=== PATIENT | male | born 1970 | race Asian ===

== ENCOUNTER → 2024-03-30 08:04 | Outpatient (REF) | payer OTHER, SELFPAY ==
--- NOTE | 2024-03-30 13:06 | PN.DE.MGMTRT ---
Insulin Management
- -
03/30/2024 Patient referred by who is a GI physician for further assistance with pump management. Patient has had diabetes 20+ years and is currently using an OmniPod with G6. 5'10' 148 pounds.
1. He c/o lumps under his skin that are painful. Discussed moving away from his thighs as he is very lean, consider hip area. Demonstrated area to use for pump insertion. Also discussed if this continues may need to pursue alternate pump so
multiple infusion sets could be tried to try to reduce skin reaction and pain.
2. He takes 6 units of insulin for each meal regardless of what he eats. He is afraid to take carbs so that he doesn't have to take insulin which will cause bumps. Lengthy discussion regarding importance of good balanced nutrition and impact on
QoL. He is in agreement. Provided nutrition education booklet and instructed on counting carbs. He and his verbalize understanding. He will use the pump setting for carb ratio of 9 and report glucose result to determine if carb ratio needs
to be adjusted.
3. Multiple low blood sugars as low as 40. This has been happening usually in relation to patient eating a meal taking a dose of insulin and exercising aggressively to bring glucose back down. Assured patient we will adjust carb ratio so this
will not happen.
Patient to record glucose results overnight and call in AM with results.
Will then skip a meal and report hourly glucose results to determine if basal rates are appropriate.
Pump settings
basal carb ratio sensitivity
12 .15 9 45
2am .75 9 45
3am 1.5 9 45
7am .75 9 45
10pm .15 9 45
Will follow daily until glucose stable.
Diabetes History
- -
Type of Diabetes: 1
Pre-Admission Diabetes Regimen
Insulin Pump Settings
IP Diabetes Regimen
Patient Education
== END ==
LOC: DES 08:04
PROVIDERS: ATTENDING PHYSICIAN Internal Medicine Gastroenterology
DX: E10.65 Type 1 diabetes mellitus with hyperglycemia (principal)
CPT/HCPCS: 99078

== ENCOUNTER 2024-12-11 12:57 | Inpatient (IN) | payer OTHER, SELFPAY ==
[2024-12-11] VITALS (21 sets, daily range): BP systolic 125–229; BP diastolic 69–137
[2024-12-11 06:20] LABS: % Basophils 0.2 % (0-2); % Immature Granulocytes 0.4 % (0-0.5); % Lymphocytes 8.4 % (20.5-51.1); % Monocytes 2.9 % (1.7-9.3); % Neutrophils 88.1 % (42.2-75.2); Absolute Lymphocytes 0.9 10^3/uL (1.2-3.4); Absolute Monocytes 0.3 10^3/uL (0.1-0.6); Absolute Neutrophils 9.6 10^3/uL (1.4-6.5); Hematocrit 43.7 % (39.0-52.0); Hemoglobin 14.9 g/dL (13.0-18.0); Mean Corp Hgb Conc. 34.1 g/dL (33.0-37.0); Mean Corpuscular Hgb 28.2 pg (27.0-31.0); Mean Corpuscular Volume 82.8 fL (80.0-94.0); Mean Platelet Volume 9.7 fL (7.4-10.4); Nucleated Red Blood Cells % 0 % (-); Platelet Count 200 10^3/uL (130-400); Red Blood Cell Count 5.28 10^6/uL (4.70-6.10); White Blood Cell Count 10.9 10^3/uL (4.8-10.8)
[2024-12-11 06:32] LABS: Lactic Acid 1.4 mmol/L (0.7-2.0)
[2024-12-11 06:35] LABS: ALT (SGPT) 20 U/L (0-50); AST (SGOT) 26 U/L (17-59); Albumin 4.2 g/dl (3.5-5.0); Alkaline Phosphatase 74 U/L (38-126); Blood Urea Nitrogen 12 mg/dl (9-20); Calcium 9.6 mg/dl (8.4-10.2); Carbon Dioxide 28 mmol/L (22-30); Chloride 101 mmol/L (98-107); Glucose 270 mg/dl (70-99); Lipase 148 U/L (23-300); Potassium 4.2 mmol/L (3.5-5.1); Sodium 136 mmol/L (135-145); Total Bilirubin 1.1 mg/dl (0.2-1.3); Total Protein 6.6 g/dl (6.3-8.2); Triglycerides 56 mg/dl (10-149); eGFR > 60.00
[2024-12-11] MEDS: NSS 1000 IV ×2 (06:45→11:30)
[2024-12-11] MEDS: ZOFRAN 4 MG IV ×3 (06:46→17:02)
[2024-12-11] MEDS: DILAUDID 0.5 MG IV ×2 (06:49→09:20)
[2024-12-11] MEDS: PROTONIX IV 40 MG IV ×2 (06:51→22:21)
[2024-12-11] MEDS: OMNIPAQUE 50 ML PO (07:30)
--- NOTE | 2024-12-11 08:17 | ED.GENMED ---
History of Present Illness
General
Chief Complaint: Abdominal Pain
Source: patient
Exam Limitations: none
Time Seen by Provider: 12/11/24 06:26
Nursing documentation reviewed up to this point in time: agreed with
History of Present Illness
History of Present Illness:
Patient with history of insulin-dependent diabetes, presents to ED secondary to persistent abdominal pain along with 1 vomiting episode, since yesterday afternoon. Patient does report having eaten type of food that he does not normally eat, along
with increased amount. Patient describes abdominal pain as sharp, diffuse, without any alleviating or exacerbating factors. Patient states that he has had similar symptoms in the past, typically resolves very quickly spontaneously. Denies history
of abdominal surgeries. Denies recent illness. Denies recent change in medications or diet. Denies diarrhea.
Review of Systems
Review of Systems
Allergies reviewed?: Yes
All Other Systems: ROS reviewed and negative except as documented in HPI and ROS
Constitutional: Reports no symptoms; Denies fever or chills
Respiratory: Reports no symptoms; Denies cough
Cardiac: Reports no symptoms; Denies chest pain
ABD/GI: Reports abdominal pain, nausea and vomiting; Denies diarrhea
Musculoskeletal: Reports no symptoms
Skin: Reports no symptoms
Neurological: Reports no symptoms
Phy Exam
Physical Exam
Physical Exam:
Physical Exam
General: mild painful distress, not acutely ill. afebrile
Head: nc/at. eomi
Neck: supple. normal range of motion.
Heart: s1/s2 regular rate and rhythm, no murmur.
Lungs: no acute respiratory distress. clear bilaterally
Abdomen: normal bowel sounds. no distention. mild epigastric/periumbilical tenderness to palpation
Neuro: alert and oriented x 3. no focal neurological deficits
Skin: no rash
Psychiatric: well kept. interactive and cooperative
Extremities: no edema. no calf tenderness
Course
Orders/Labs/Results
Orders:
Orders
12/11/24 05:52
IV Insert/Care/Rem.- Treatment PRN
12/11/24 05:54
EKG [Electrocardiogram (*1)] Urgent
Reason for Study: Abdominal Pain
EKG- Treatment ONCE
12/11/24 06:07
Complete Blood Count/With Diff Urgent
Comprehensive Metabolic Panel Urgent
Lactic Acid Urgent
Lipase Urgent
TSH Routine
Comment: ADD ON
Triglycerides Urgent
12/11/24 06:32
Add On- LAB Routine
Tests Added?: TSH
12/11/24 06:38
0.9% Sodium Chloride 1000 ml [Nss] 1,000 ml IV BOLUS
HYDROmorphone [Dilaudid] 0.5 mg IV NOW STA
Ondansetron Injectable [Zofran] 4 mg IV NOW STA
Pantoprazole [Protonix IV] 40 mg IV NOW STA
12/11/24 07:09
Iohexol [Omnipaque] See Protocol PO NOW STA
12/11/24 07:12
CT Abd/pel W Iv And Oral Contr Urgent
Comment:
Reason For Exam: abdominal pain
12/11/24 09:15
HYDROmorphone [Dilaudid] 0.5 mg IV NOW STA
Ondansetron Injectable [Zofran] 4 mg IV NOW STA
12/11/24 11:00
0.9% Sodium Chloride 1000 ml [Nss] 1,000 ml IV 100 mls/hr
12/11/24 11:15
Gastrointestinal Tubes As Directed
Type: [place] sump
To suction?: Yes
Type of suction: Low intermittent
Directions to clamp NG tube: for testing/ambulation
Irrigate tube?: Yes
Irrigant: Tap Water
Frequency: Q4H
Amount in mls: 30
Irrigation Directions: Irrigate Q4H and PRN
Comment: 16fr joannem sump
12/11/24 11:33
CR Chest Single View Routine
Comment:
Reason For Exam: eval NGT placement
12/11/24 12:01
Bladder Scan As Directed
Follow Bladder Retention/Intermittent Cath Algorithm?: No
12/11/24 12:10
Benzocaine 20% [Hurricaine [place]] 1 applic .ROUTE .STK-MED ONE
12/11/24 12:29
CR Chest Portable - 1 View Urgent
Comment:
Reason For Exam: ngt placement
Reason Study Needs to be Portable: Patient Unstable
12/11/24 12:35
Admit/Transfer Patient As Directed
Co-Sign Provider:
Level of Care: Inpatient admission
Assign to:: Medical/Surgical
Physician / Group: pasricha/medicine
Diagnosis: ileus/?sbo
Reason for Hospitalization: ileus/?sbo
Expected length of stay greater than two midnights?: Yes
ELOS- Estimated Length of Stay in days: 3
I certify the patient meets the requirements for IP care: Yes
HYDROmorphone [Dilaudid] 1 mg IV NOW STA
12/11/24 12:36
PRN Pain Medication Management As Directed
May give lesser potent ordered pain med per pt: Yes
preference::
Protocol:: Medication orders for pain may be administered in a
manner that supports deferring to patient preference
when the pt is:
- Requesting an ordered lesser potent pain medication.
Least to most potent pain medications are defined
as: acetaminophen < NSAID < tramadol < opioids
(morphine, oxycodone, hydromorphone).
- Requesting a lesser dose of the same medication IF
ORDERED.
- Requesting a less intrusive route of administration
if both routes are prescribed by the provider (PO <
IV).
12/11/24 12:37
Code Status As Directed
Resuscitation Status: Full Code
12/11/24 12:41
Diabetes Management by Nurse Practitioner Routine
Consulting Provider: Amairani Nelson
Was provider already notified?: Yes
12/12/24 06:00
CR Abdomen - 1 View IN AM
Comment:
Reason For Exam: n/v/abdominal pain, follow PO contrast
Abnormal Lab Results
12/11/24 12/11/24
06:07 11:05
WBC 10.9 H 10^3/uL
(4.8-10.8)
Absolute Neuts (auto) 9.6 H 10^3/uL
(1.4-6.5)
Absolute Lymphs (auto) 0.9 L 10^3/uL
(1.2-3.4)
Neutrophils % 88.1 H %
(42.2-75.2)
Lymphocytes % 8.4 L %
(20.5-51.1)
Glucose 270 H mg/dl
(70-99)
POC Glucose 213 H mg/dl
(70-99)
12/11/24 06:07
12/11/24 06:07
Vital Signs
Initial and Last Documented VS:
Initial Vital Signs
Temp Pulse Resp BP Pulse Ox
98.9 F 112 22 158/92 99
12/11/24 05:33 12/11/24 05:33 12/11/24 05:33 12/11/24 05:33 12/11/24 05:33
Last Documented Vital Signs
Temp Pulse Resp BP Pulse Ox
98.9 F 79 14 161/83 98
12/11/24 05:33 12/11/24 13:22 12/11/24 13:22 12/11/24 13:22 12/11/24 13:22
MDM/Problems Addressed
MDM/Problems Addressed:
CT abdomen pelvis report reviewed and discussed with patient and spouse. As patient does not have any previous abdominal surgical history and with symptoms having started after consuming meal that he does not typically eat, it is likely that his
symptoms are more likely ileus as a result of mild colitis rather than small obstruction. As such, patient will be treated conservatively with IV fluids and bowel rest. Will hold off NG tube placement at this time.
*Critical Care Note
Total Time (30-74mins, 75-104mins- exclusive of procedures): Not Applicable
ED Attending Note
-
Portions of this chart may have been created with voice recognition software.� Occasional wrong word or��sound alike� substitutions may have occurred due to the inherent limitations of voice recognition software.
Discharge Plan
Departure
Patient Disposition: Admit
Date of Disposition: 12/11/24
Time of Disposition: 11:00
Admit to: Med/Surg
Presentation/result/management discussed w/ accepting MD/DO: Hospitalist
Discharge Problem:
Small bowel obstruction, Hyperglycemia
Interventions
Interventions:
*Risk Screen - Suicide Last Done: 12/11/24 05:33
*General Assessment Last Done: 12/11/24 05:44
*Neglect/Abuse Screening Last Done: 12/11/24 05:33
*ED- Fall Risk Assessment Last Done: 12/11/24 05:44
*ED COVID-19 Vaccine History Last Done: 12/11/24 05:44
ZY-Qrdxgh-Tmuxqfwzct Assessment Last Done: 12/11/24 05:44
[2024-12-11 10:45] LABS: TSH 1.96 uIU/ml (0.47-4.68)
[2024-12-11 11:15] LABS: Glucose - Point of Care 213 mg/dl (70-99)
--- NOTE | 2024-12-11 11:34 | CON.GS ---
Medical History
-
Chief Complaint: N/V/ABD pain
History of Present Illness:
This is a 53 yo male with a h/o NIDDM with no prior abdoinal surgery who presents through the ED with one day of nausea and vomiting with abdominal pain. He notes that yesterday morning, he had a very large breakfast which was about double the
amount he usually eats with lots of high fiber foods (he estimates about 35-40gm of fiber). Later that day, he began developing sharp diffuse abdominal pain with an episode of vomiting. His pain persisted causing him to present through the ED for
evaluation. He denies fevers or chills. He has had relief in pain and nausea s/p dilaudid and zofran administered in the ED.
Past Medical History
Past Medical History: Hypercholesterolemia, Hypothyroidism and NIDDM
Past Surgical History: None and Other (last colonoscopy was several months ago)
Social History
Tobacco: Non-Smoker
Alcohol: None
Family History
Family History: Reviewed & Not Pertinent
Allergies / Home Medications
Allergy/AdvReac Type Severity Reaction Status Date / Time
No Known Allergies Allergy Verified 12/11/24 05:36
�Medication �Instructions �Recorded �Confirmed �Type
atorvastatin 20 mg tablet 20 mg PO HS 12/11/24 12/11/24 History
levothyroxine 25 mcg tablet 25 mcg PO DAILY 12/11/24 12/11/24 History
(Unithroid)
metformin 1,000 mg tablet 1,000 mg PO BID 12/11/24 12/11/24 History
Review of Systems
-
History Source: Patient
All other systems: Negative unless noted
A 10 point review of systems was completed, and was negative except as per HPI.
Physical Exam
Vital Signs
Temp Pulse Resp BP Pulse Ox
98.9 F 82 15 142/81 99
12/11/24 05:33 12/11/24 07:30 12/11/24 07:30 12/11/24 07:00 12/11/24 07:30
Lab Results
12/11/24 06:07
12/11/24 06:07
WBC 10.9 10^3/uL (4.8-10.8) H 12/11/24 06:07
Hgb 14.9 g/dL (13.0-18.0) 12/11/24 06:07
Hct 43.7 % (39.0-52.0) 12/11/24 06:07
Plt Count 200 10^3/uL (130-400) 12/11/24 06:07
Abs Immat Gran (auto) 0.0 10^3/uL (0-0.05) 12/11/24 06:07
Neutrophils % 88.1 % (42.2-75.2) H 12/11/24 06:07
Physical Exam
General: Well Developed and Well Nourished
HEENT: Moist Mucous Membranes
GI: Soft, Tender (mild) and Distended
Skin: Warm and Dry
Neuro: Awake, Alert and AO x 3
Psych: Calm
Data Reviewed
-
CT Scan: Image Personally Visualized and interpreted, Report Reviewed by me, Discussed with Physician, Discussed with Nurse, Discussed with Patient and Discussed with Family
Labs: Labs Reviewed by me, Discussed with Physician, Discussed with Nurse, Discussed with Patient and Discussed with Family
Assessment / Plan
-
53 yo male with h/o NIDDM and no prior abdominal surgeries presenting with one day of abd pain/n/v. Mild leukocytsosis. AFVSS. CT imaging reviewed with SBO present with transition point likely in the jejunum with small bowel feces sign. Unclear
etiology, suspect dietary indiscretion given reported history. Discussed dx laparoscopy for further evaluation today vs following closely for improvement with bowel rest/decompression. Opting for nonoperative measures at this time. Being admitted to
the hospitalist service.
Plan:
--Place NGT to LIWS, will check XR for placement
--NPO/IVF
--Antiemetics/Analgesics
--Xray in AM
--Diabetic/medical management as per primary team
[2024-12-11] MEDS: DILAUDID 1 MG IV (12:42)
--- NOTE | 2024-12-11 13:27 | W.PN.UPDATE ---
Update Note
Progress Note Update
asked to assist with NGT placement. Initial NGT right nare but coiled up in esophagus and unable to flush or drain. Attempted to adjust with coiling in mouth. Made another attempt to place left nare #18 tunisian with some resistant or nasal cavity
with small amount of bleeding. Pt requested break. Sent message to surgery to another attempt. Would consider # 16 tunisian right nare next. Reviewed with Dr. Robbins.
--- NOTE | 2024-12-11 14:58 | HPS.HSE ---
Family Physician
-
Family Physician: Philip Venegas
Chief Complaint
-
Epigastric pain
History of Present Illness
53-year-old male with past medical history of diabetes on insulin pump, atorvastatin, hypothyroidism, no prior abdominal surgeries now presents for 1 day of abdominal pain, nausea and vomiting. Unable to tolerate PO. No Diarrhea. No known sick
contacts. Pain is intermittent, sharp, diffuse, mid epigastric area. Does not acknowledge any new types of food intake. No change in medications or diet, glucose fairly under control with insulin pump. Labs remarkable for white count of 10.9 K,
glucose 270. Remains hypertensive, with pain, respiratory rate 15, pulse 84, afebrile. CT imaging with questionable small bowel obstruction although no known surgical interventions. An adynamic ileus is less likely possibility given possible
transition point. Mild circumferential wall thickening in the splenic fissure to suggest mild colitis. Patient abdomen is nondistended, nontender. Does have severely distended urinary bladder on imaging. Colorectal surgery was consulted.
Medical History
Past Medical History
Past Medical History: Reports Hypothyroidism and IDDM
Past Surgical History: Reports None
Additional Past Surgical History:
last colonoscopy was several months ago
Social History
Tobacco: Non-smoker
Alcohol: None
Family History
Family History: Not pertinent
Allergies / Home Medications
Allergies reflects when Allergies were last updated in [employer].
Home Medications with original date entered in [employer]
Allergy/Medication List:
Allergies
Allergy/AdvReac Type Severity Reaction Status Date / Time
No Known Allergies Allergy Verified 12/11/24 05:36
Home Medications
Patient's Own Insulin Pump 50 - 60 units SC .NOVOLOG 12/11/24
atorvastatin 20 mg tablet 20 mg PO HS 12/11/24
ergocalciferol (vitamin D2) 1,250 mcg (50,000 unit) capsule 1,250 mcg PO QMONTH 12/11/24
levothyroxine 25 mcg tablet (Unithroid) 25 mcg PO DAILY 12/11/24
metformin 1,000 mg tablet 1,000 mg PO BID 12/11/24
Review of Systems
-
History Source: Patient
A 12 point ROS was completed and negative except as noted: Yes
Physical Exam
Vital Signs
Vital Signs
Temp Pulse Resp BP Pulse Ox
98.9 F 84 15 182/78 95
12/11/24 05:33 12/11/24 14:30 12/11/24 14:30 12/11/24 14:13 12/11/24 14:30
Physical Exam
General: Well Developed, Well Nourished and Pain
HEENT: NormoCephalic, Anicteric and Moist mucous membranes
Respiratory: Clear
Cardiac: S1/S2 and Regular Rhythm
GI: Soft, Non Tender and Non Distended
Musculoskeletal: No Clubbing
Skin: Warm
Neuro: Awake, Alert, Oriented and AO x 3
Hematologic/Lymphatic: No Lymphadenopathy
Psych: Calm
Laboratory Results
-
12/11/24 06:07
12/11/24 06:07
Laboratory Results
Lactic Acid 1.4 mmol/L (0.7-2.0) 12/11/24 06:07
Total Bilirubin 1.1 mg/dl (0.2-1.3) 12/11/24 06:07
AST 26 U/L (17-59) 12/11/24 06:07
ALT 20 U/L (0-50) 12/11/24 06:07
Alkaline Phosphatase 74 U/L (38-126) 12/11/24 06:07
Lipase 148 U/L (23-300) 12/11/24 06:07
Data Reviewed
-
Diagnostic Radiology: Report Reviewed by me
CT Scan: Report Reviewed by me
Lab Data: Labs Reviewed by me
Impression/Plan
-
IMPRESSION:
53-year-old male with past medical history of diabetes on insulin pump, atorvastatin, hypothyroidism, no prior abdominal surgeries now presents for 1 day of abdominal pain, nausea and vomiting.
PLAN:
#Abdominal pain
#Nausea/Vomiting
-Possible Ileus V less likely SBO
- May have superimposed gastroenteritis
- Pain control, antiemetics, supportive care
- NPO
- Will attempt NGT to LIWS for relief and decompression, will be re-attempted by surgery
- TSH WNL
- Add on HgBa1c
- Surgery Consulted
-LR
#Hypertension
-I suspect pain induced
-Hydral IV PRN
-monitor
#IDDM
-continue insulin pump
-f/u Hgba1c
-Monitor glucose
�Hold metformin
# Hypothyroidism
TSH within normal limits
� Can hold oral Synthroid for 5 days until requiring IV Synthroid
#Hyperlipidemia
#DVT prophylaxis
� Lovenox
--- NOTE | 2024-12-11 15:31 | PTCARENOTE ---
surgery at bedside placing NG tube
[2024-12-11] MEDS: LIDOCAINE URO-JET 2% 1 SYRINGE TOPICAL (15:39)
--- NOTE | 2024-12-11 15:52 | PTCARENOTE ---
to radiology to confrim placement. NG draining moderate amt pale yellow/mckenna
--- NOTE | 2024-12-11 17:07 | PTCARENOTE ---
pt nauseous and vomiting. Zofran orders obtained. See MAR. BP remains elevated- contacting attending
--- NOTE | 2024-12-11 17:39 | SUR.PHASEI ---
pt transferred to 3W
[2024-12-11] MEDS: LR 1000 IV (18:14)
[2024-12-11 18:30] LABS: Glucose - Point of Care 210 mg/dl (70-99)
[2024-12-11] MEDS: LOVENOX 40 MG SC (18:34)
--- NOTE | 2024-12-11 18:44 | PTCARENOTE ---
Pt arrived to the unit around 1800, ambulated from stretcher to bed x1 assist. NG tube in place, pt appears to be tolerating. No pain reported at this time. and family accompanied to unit. Pt and family oriented to unit and room. Pt alerted to
this nurse that his own pump (insulin order in place) was reading high sugar. MD notified, sliding scale pen ordered. POC glucose completed at 201. Awaiting pen from pharmacy at this time. VSS. Plan of care ongoing.
[2024-12-11] MEDS: NOVOLOG FLEXPEN-LOW RESISTANCE 2 UNITS SC (19:15)
[2024-12-11] MEDS: NSS (PRESERVATIVE FREE) 10 ML IV (22:20)
[2024-12-11] MEDS: DULCOLAX 10 MG RECTAL (22:21)
[2024-12-11] MEDS: PT'S OWN INSULIN PUMP - NovoLOG SC (23:29)
[2024-12-12 00:06] LABS: Glucose - Point of Care 133 mg/dl (70-99)
[2024-12-12] MEDS: NOVOLOG FLEXPEN-LOW RESISTANCE SC ×2 (00:08→06:07)
[2024-12-12 05:40] LABS: Hematocrit 39.7 % (39.0-52.0); Hemoglobin 13.2 g/dL (13.0-18.0); Mean Corp Hgb Conc. 33.2 g/dL (33.0-37.0); Mean Corpuscular Hgb 27.8 pg (27.0-31.0); Mean Corpuscular Volume 83.6 fL (80.0-94.0); Platelet Count 185 10^3/uL (130-400); Red Blood Cell Count 4.75 10^6/uL (4.70-6.10); Red Cell Dist. Width 13.1 % (11.5-14.5); White Blood Cell Count 9.2 10^3/uL (4.8-10.8)
[2024-12-12 05:46] LABS: Glucose - Point of Care 129 mg/dl (70-99)
[2024-12-12 06:00] VITALS: BMI 21.0
[2024-12-12 06:20] LABS: ALT (SGPT) 20 U/L (0-50); AST (SGOT) 26 U/L (17-59); Albumin 3.8 g/dl (3.5-5.0); Alkaline Phosphatase 63 U/L (38-126); Blood Urea Nitrogen 13 mg/dl (9-20); Calcium 8.7 mg/dl (8.4-10.2); Carbon Dioxide 29 mmol/L (22-30); Chloride 106 mmol/L (98-107); Glucose 135 mg/dl (70-99); Magnesium 2.2 mg/dl (1.6-2.3); Potassium 3.9 mmol/L (3.5-5.1); Sodium 143 mmol/L (135-145); Total Bilirubin 1.2 mg/dl (0.2-1.3); Total Protein 5.8 g/dl (6.3-8.2); eGFR > 60.00
[2024-12-12 06:48] LABS: TSH 3.01 uIU/ml (0.47-4.68)
[2024-12-12 07:15] VITALS: BP 120/72
[2024-12-12] MEDS: LR IV (08:00)
[2024-12-12] MEDS: PROTONIX IV 40 MG IV ×2 (08:24→20:23)
[2024-12-12] MEDS: NSS (PRESERVATIVE FREE) 10 ML IV ×2 (08:24→20:24)
[2024-12-12] MEDS: PT'S OWN INSULIN PUMP - NovoLOG SC (08:31)
[2024-12-12 09:13] LABS: Glycohemoglobin (HgbA1c) 6.6 % (4.0-5.6)
--- NOTE | 2024-12-12 09:28 | W.PN.GS2 ---
Today's Communication / Plan
-
-- No plans for surgery
-- DC NGT
-- Trial of clears, ADAT to fulls
Assessment / Plan
-
Patient is a 53 yo M p/w partial SBO likely secondary to dietary indiscretion with recent high-fiber food intake
AVSS
Labs with normalization of WBC
Clinical and radiographic improvement with passage of contrast into the colon and no significant small bowel dilation. No plans or indication for surgical intervention at this time. Given rapid clinical and radiographic improvement would hold on
further workup such as a SBFT at this time.
-- No plans for surgery
-- DC NGT
-- Trial of clears, ADAT to fulls
-- Correct, lytes, minimize narcotics, OOB/ambulate
Subjective Data
-
Date of Service: December 12, 2024
No complaints. Abdominal pain improved. No nausea or vomiting. No flatus or BM. Afebrile.
Objective Data
-
Intake and Output
12/11/24 12/12/24 12/13/24
06:59 06:59 06:59
Intake Total 0 / 0
Balance 0 / 0
Intake:
Oral fluids 0 / 0
Other:
Number of approximated MODERATE 1
amounts of urine
Vital Signs
Temp Pulse Resp BP Pulse Ox
98.6 F 90 16 120/72 98
12/12/24 07:15 12/12/24 07:15 12/12/24 07:15 12/12/24 07:15 12/12/24 07:15
Lab Results
12/12/24 05:19
12/12/24 05:19
Calcium 8.7 mg/dl (8.4-10.2) 12/12/24 05:19
Magnesium 2.2 mg/dl (1.6-2.3) 12/12/24 05:19
Total Bilirubin 1.2 mg/dl (0.2-1.3) 12/12/24 05:19
AST 26 U/L (17-59) 12/12/24 05:19
ALT 20 U/L (0-50) 12/12/24 05:19
Alkaline Phosphatase 63 U/L (38-126) 12/12/24 05:19
Total Protein 5.8 g/dl (6.3-8.2) L 12/12/24 05:19
Albumin 3.8 g/dl (3.5-5.0) 12/12/24 05:19
Physical Exam
-
Gen: NAD
Abd: soft, NT/ND, non-peritoneal
Patient has a tovar catheter: No
Patient has a central line: No
--- NOTE | 2024-12-12 12:10 | PN.DE.MGMTRT ---
Insulin Management
- -
12/12/2024 Diabetes Management Consult
Patient admitted 12/11 with abdominal pain, small bowel obstruction. PMH type 1 diabetes, hypothyroid. Prior to admission patient was using the OmniPod 5 system with DexCom G6, and novolog insulin. A1C 6.6%, cr .7, eGFR > 60.
Patient is awake alert and oriented resting in bed, no complaint of abdominal pain. NGT removed. Has started clear liquids, tolerating. Had water ice this AM.
Fasting glucose 129, after water ice glucose up to 270. Patient had changed basal rates to much lower rates and was in manual mode. Discussed with patient importance of glucose control. He is under the impression his pump would just correct him.
Reminded patient he must be in Auto mode for the pump to correct and that he must be running his usual basal rate settings for optimal control. Pump settings as follows:
12am .15
2am .75
3am 1.5
7am .75
10pm .15
24 hour basal total 18.6
I:CHO ratio 8
Correction factor 40
Active insulin 3 hours.
Guided patient to take a correction, which he did. Pump placed back in Auto mode. Patient understands to bolus for all carbohydrate consumed.
Will follow
Discussed with nurse.
Diabetes History
- -
Type of Diabetes: 1
Pre-Admission Diabetes Regimen
12/12/24
05:19
Creatinine 0.7
Lab Results
Hemoglobin A1c 6.6 % (4.0-5.6) H 12/11/24 06:07
Insulin Pump Settings
IP Diabetes Regimen
12/11/24 12/12/24 12/12/24
18:28 00:04 05:19
Glucose 135 H
POC Glucose 210 H 133 H
12/12/24
05:45
Glucose
POC Glucose 129 H
Patient Education
--- NOTE | 2024-12-12 12:47 | W.PN.HOSP.TC ---
Today's Communication/Plan
-
ADAT
If tolerating diet can consider DC
F/u GI outpt
Assessment / Plan
Assessment / Plan
Physical Exam
General: Well Developed, Well Nourished and Pain
HEENT: NormoCephalic, Anicteric and Moist mucous membranes
Respiratory: Clear
Cardiac: S1/S2 and Regular Rhythm
GI: Soft, Non Tender and Non Distended
Musculoskeletal: No Clubbing
Skin: Warm
Neuro: Awake, Alert, Oriented and AO x 3
Hematologic/Lymphatic: No Lymphadenopathy
Psych: Calm
53-year-old male with past medical history of diabetes on insulin pump, atorvastatin, hypothyroidism, no prior abdominal surgeries now presents for 1 day of abdominal pain, nausea and vomiting.
PLAN:
#Abdominal pain
#Nausea/Vomiting
-Possible Ileus V less likely SBO
- May have superimposed gastroenteritis
- Pain control, antiemetics, supportive care
- NGT removed
-KUB with improvement in fecal material, no evidence of intestinal obstruction
-CLD, ADAT to Full
- TSH WNL
- Add on HgBa1c
- Surgery Consulted
-Successful BM with Enema
-F/u GI outpt
#Hypertension
-improved
-I suspect pain induced
-Hydral IV PRN
-monitor
#IDDM
-continue insulin pump on auto mode
-f/u Hgba1c - 6.6
-Monitor glucose
�Hold metformin
-AISS
-DM BUSINESS MANAGEMENT SPECIALIST consulted
# Hypothyroidism
TSH within normal limits
� Can hold oral Synthroid for 5 days until requiring IV Synthroid
#Hyperlipidemia
#DVT prophylaxis
� Lovenox
Anticipated Discharge: Within 24 hours
Subjective/Interval History
-
Date of Service: December 12, 2024
discomfort with NGT, removed with improvement. Successful BM after enema.
Objective Data
-
Labs:
Laboratory Results
12/12/24
05:19
WBC 9.2
Hgb 13.2
Hct 39.7
Plt Count 185
Sodium 143
Potassium 3.9
Chloride 106
Carbon Dioxide 29
BUN 13
Creatinine 0.7
Glucose 135 H
Calcium 8.7
Total Bilirubin 1.2
AST 26
ALT 20
Alkaline Phosphatase 63
Vital Signs:
Vital Signs
Temp Pulse Resp BP Pulse Ox
98.6 F 90 16 120/72 98
12/12/24 07:15 12/12/24 07:15 12/12/24 07:15 12/12/24 07:15 12/12/24 07:15
I&O
12/11/24 12/12/24 12/13/24
06:59 06:59 06:59
Intake Total 0 / 0 30 / 30
Output Total 200 / 200
Balance 0 / 0 -170 / -170
Review of Systems
-
History Source: Patient
All other systems: Not reviewed unless documented
Data Reviewed
-
Diagnostic Radiology: Report Reviewed by me
CT Scan: Report Reviewed by me
Labs: Labs Reviewed by me
[2024-12-12] MEDS: PT'S OWN INSULIN PUMP - NovoLOG 9.7 UNIT SC (12:54)
--- NOTE | 2024-12-12 15:43 | CM ---
Alert awake oriented patient who lives with his Lisa who lives in a 2 story home with 3 step to enter and 12 steps to bed and bathroom. He is independent in driving and in all activities of daily living.He was offered VN he declined need.
No VN hx / No SNF history
Pharmacy [facility]
PCP DR Venegas
PLAN Home Declined VN
[2024-12-12 15:50] VITALS: BP 101/67
[2024-12-12] MEDS: LOVENOX 40 MG SC (17:31)
[2024-12-12 17:34] LABS: Glucose - Point of Care 78 mg/dl (70-99)
[2024-12-12] MEDS: PT'S OWN INSULIN PUMP - NovoLOG 11.2 UNIT SC (17:34)
[2024-12-12 21:39] LABS: Glucose - Point of Care 140 mg/dl (70-99)
[2024-12-12] MEDS: PT'S OWN INSULIN PUMP - NovoLOG 6 UNIT SC (21:49)
[2024-12-12 23:36] VITALS: BP 102/58
[2024-12-13 07:30] VITALS: BP 100/53
--- NOTE | 2024-12-13 07:55 | PN.DE.MGMTRT ---
Insulin Management
- -
12/13/2024 Diabetes Management Consult Follow up
Patient admitted 12/11 with abdominal pain, small bowel obstruction. PMH type 1 diabetes, hypothyroid. Prior to admission patient was using the OmniPod 5 system with DexCom G6, and novolog insulin. A1C 6.6%, cr .7, eGFR > 60.
Patient is awake alert and oriented resting in bed, no complaint of abdominal pain. NGT removed 12/12, started clear liquids, tolerating.
12/12 Patient had changed basal rates to much lower rates and was in manual mode. Discussed with patient importance of glucose control. He is under the impression his pump would just correct him. Reminded patient he must be in Auto mode for the
pump to correct and that he must be running his usual basal rate settings for optimal control. Pump settings as follows:
12am .15
2am .75
3am 1.5
7am .75
10pm .15
24 hour basal total 18.6
I:CHO ratio 8
Correction factor 40
Active insulin 3 hours.
Pump placed back in Auto mode. Patient understands to bolus for all carbohydrate consumed.
12/13 Pre meal glucose yesterday 78 to 129, HS glucose 140. Fasting glucose today 209, patient took bolus for meal and correction 9.4. Will make no change to current pump settings.
Patient for discharge today.
Discussed with nurse.
Diabetes History
- -
Type of Diabetes: 1
Pre-Admission Diabetes Regimen
Lab Results
Hemoglobin A1c 6.6 % (4.0-5.6) H 12/11/24 06:07
Insulin Pump Settings
IP Diabetes Regimen
12/12/24 12/12/24
17:33 21:37
POC Glucose 78 140 H
Patient Education
[2024-12-13 08:01] LABS: Glucose - Point of Care 209 mg/dl (70-99)
[2024-12-13] MEDS: PT'S OWN INSULIN PUMP - NovoLOG 9.4 UNIT SC (08:01)
[2024-12-13] MEDS: PROTONIX IV 40 MG IV (08:02)
[2024-12-13] MEDS: NSS (PRESERVATIVE FREE) 10 ML IV (08:02)
[2024-12-13 09:29] LABS: Hematocrit 39.2 % (39.0-52.0); Mean Corp Hgb Conc. 33.2 g/dL (33.0-37.0); Mean Corpuscular Hgb 28.3 pg (27.0-31.0); Mean Corpuscular Volume 85.4 fL (80.0-94.0); Mean Platelet Volume 10.2 fL (7.4-10.4); Platelet Count 151 10^3/uL (130-400); Red Blood Cell Count 4.59 10^6/uL (4.70-6.10); White Blood Cell Count 5.3 10^3/uL (4.8-10.8)
[2024-12-13 10:27] LABS: ALT (SGPT) 21 U/L (0-50); AST (SGOT) 29 U/L (17-59); Albumin 3.3 g/dl (3.5-5.0); Alkaline Phosphatase 62 U/L (38-126); Blood Urea Nitrogen 10 mg/dl (9-20); Calcium 8.3 mg/dl (8.4-10.2); Carbon Dioxide 30 mmol/L (22-30); Chloride 104 mmol/L (98-107); Estimated Creatinine Clearance 99 ml/min; Glucose 201 mg/dl (70-99); Potassium 3.8 mmol/L (3.5-5.1); Sodium 142 mmol/L (135-145); Total Bilirubin 0.9 mg/dl (0.2-1.3); Total Protein 5.4 g/dl (6.3-8.2); eGFR > 60.00
--- NOTE | 2024-12-13 11:22 | W.PN.HOSP.TC ---
Addendum entered and electronically signed by Bear Navarrete MD 12/14/24 17:04:
[id number]
Original Note:
Today's Communication/Plan
-
Low Residue Diet
F/u GI for possible C-Scope outpt
cbc and bmp in 1 week
f/u pcp within 1 week
Assessment / Plan
Assessment / Plan
Physical Exam
General: Well Developed, Well Nourished and Pain
HEENT: NormoCephalic, Anicteric and Moist mucous membranes
Respiratory: Clear
Cardiac: S1/S2 and Regular Rhythm
GI: Soft, Non Tender and Non Distended
Musculoskeletal: No Clubbing
Skin: Warm
Neuro: Awake, Alert, Oriented and AO x 3
Hematologic/Lymphatic: No Lymphadenopathy
Psych: Calm
53-year-old male with past medical history of diabetes on insulin pump, atorvastatin, hypothyroidism, no prior abdominal surgeries now presents for 1 day of abdominal pain, nausea and vomiting.
PLAN:
#Abdominal pain
#Nausea/Vomiting
-Possible Ileus V less likely SBO
- May have superimposed gastroenteritis
- Pain control, antiemetics, supportive care
- NGT removed 12/12
-KUB with improvement in fecal material, no evidence of intestinal obstruction
-Tolerating LRD
- TSH WNL
- Add on HgBa1c - 6.6
- Surgery Consulted - appreciate recs
-Successful BM with Enema
-F/u GI outpt - for Colonoscopy if needed
#Hypertension
-improved
-I suspect pain induced
-Hydral IV PRN
-monitor
#IDDM
-continue insulin pump on auto mode
-f/u Hgba1c - 6.6
-Monitor glucose
�resume metformin on dc
-DM [employer] consulted
# Hypothyroidism
TSH within normal limits
#Hyperlipidemia
#DVT prophylaxis
� Lovenox
More than 30 minutes spent in discharge including
Final examination of the patient
Summarizing hospital stay
Instructions for continuing care to all relevant caregivers
Preparation of discharge records, prescriptions, and referral forms
Total time spent (37 in minutes):
Anticipated Discharge: Today
Subjective/Interval History
-
Date of Service: December 13, 2024
feels better, tolerating LRD
Objective Data
-
Labs:
Laboratory Results
12/13/24
08:09
WBC 5.3
Hgb 13.0
Hct 39.2
Plt Count 151
Sodium 142
Potassium 3.8
Chloride 104
Carbon Dioxide 30
BUN 10
Creatinine 0.8
Glucose 201 H
Calcium 8.3 L
Total Bilirubin 0.9
AST 29
ALT 21
Alkaline Phosphatase 62
Vital Signs:
Vital Signs
Temp Pulse Resp BP Pulse Ox
99.2 F 73 14 100/53 99
12/13/24 07:30 12/13/24 07:30 12/13/24 07:30 12/13/24 07:30 12/13/24 07:30
I&O
12/12/24 12/13/24 12/14/24
06:59 06:59 06:59
Intake Total 0 / 0 870 / 870
Output Total 200 / 200
Balance 0 / 0 670 / 670
Review of Systems
-
History Source: Patient
All other systems: Not reviewed unless documented
Data Reviewed
-
Diagnostic Radiology: Report Reviewed by me
CT Scan: Report Reviewed by me
Labs: Labs Reviewed by me
--- NOTE | 2024-12-13 11:27 | CM ---
MD entered order for discharge.
Pt said ready for dc.
Family will drive him home . Declined VN need.
PLAN Home no needs
--- NOTE | 2024-12-13 11:27 | W.DS.TRANS ---
DC Summary - Gaming Table Operator
-
Discharge Instructions:
Discharge Diagnosis/Procedures #Abdominal pain
#Nausea/Vomiting
Diet Low Residue,Diabetic, Carb Controlled,Low
Cholesterol,Low Fat
Blood Work cbc and bmp in 1 week approximately with pcp
Instructions:
Stand-Alone Forms:
Changes to Home Medications: No
Discharge Medications:
DC Medications w/original date entered in [employer]
Patient's Own Insulin Pump 50 - 60 units SC .NOVOLOG Diabetes 12/11/24
atorvastatin 20 mg tablet 20 mg PO HS High Cholesterol 12/11/24
ergocalciferol (vitamin D2) 1,250 mcg (50,000 unit) capsule 1,250 mcg PO QMONTH Supplement 12/11/24
levothyroxine 25 mcg tablet (Unithroid) 25 mcg PO DAILY Thyroid 12/11/24
metformin 1,000 mg tablet 1,000 mg PO BID Diabetes 12/11/24
Home Medication Changes
na
Pending Results: Yes
--- NOTE | 2024-12-13 11:49 | W.PN.GS2 ---
Today's Communication / Plan
-
OK for DC
Assessment / Plan
-
Patient is a 53 yo M p/w partial SBO likely secondary to dietary indiscretion with recent high-fiber food intake
AVSS
Labs with normalization of WBC
Clinical and radiographic improvement with passage of contrast into the colon and no significant small bowel dilation. No plans or indication for surgical intervention at this time. Given rapid clinical and radiographic improvement would hold on
further workup such as a SBFT at this time.
-- Latoya diet
-- Symptoms resolved
-- OK for DC home from surgical standpoint
Subjective Data
-
Date of Service: December 13, 2024
AFVSS, ambulating, passing flatus, denies abd pain, denies nausea
Objective Data
-
Intake and Output
12/12/24 12/13/24 12/14/24
06:59 06:59 06:59
Intake Total 0 / 0 870 / 870
Output Total 200 / 200
Balance 0 / 0 670 / 670
Intake:
Oral fluids 0 / 0 840 / 840
Amount instilled into GI Tube ( 30 / 30
Total)
Tehama Sump 30 / 30
Output:
Gastrointestinal tube output ( 200 / 200
Total)
Tehama Sump 200 / 200
Other:
Number of approximated MODERATE 1 1
amounts of urine
Vital Signs
Temp Pulse Resp BP Pulse Ox
99.2 F 73 14 100/53 99
12/13/24 07:30 12/13/24 07:30 12/13/24 07:30 12/13/24 07:30 12/13/24 07:30
Lab Results
12/13/24 08:09
12/13/24 08:09
Calcium 8.3 mg/dl (8.4-10.2) L 12/13/24 08:09
Magnesium 2.2 mg/dl (1.6-2.3) 12/12/24 05:19
Total Bilirubin 0.9 mg/dl (0.2-1.3) 12/13/24 08:09
AST 29 U/L (17-59) 12/13/24 08:09
ALT 21 U/L (0-50) 12/13/24 08:09
Alkaline Phosphatase 62 U/L (38-126) 12/13/24 08:09
Total Protein 5.4 g/dl (6.3-8.2) L 12/13/24 08:09
Albumin 3.3 g/dl (3.5-5.0) L 12/13/24 08:09
Physical Exam
-
Gen: NAD
Abd: soft, nt, nd
== END 2024-12-13 11:40 | disposition home or self-care (01) | DRG 392 ==
LOC: 3 WEST ACU 12:57
PROVIDERS: Emergency Medicine; ADMITTING PHYSICIAN Internal Medicine; EMERGENCY PHYSICIAN Emergency Medicine; FAMILY PHYSICIAN Internal Medicine Geriatric Medicine; OTHER PHYSICIAN Surgery
DX: K52.9 Noninfective gastroenteritis and colitis, unspecified (principal); K56.7 Ileus, unspecified; K56.609 Unspecified intestinal obstruction, unspecified as to partial versus complete obstruction; Z96.41 Presence of insulin pump (external) (internal); Z79.4 Long term (current) use of insulin; E03.9 Hypothyroidism, unspecified; E11.65 Type 2 diabetes mellitus with hyperglycemia; Z79.84 Long term (current) use of oral hypoglycemic drugs; I10 Essential (primary) hypertension; E78.00 Pure hypercholesterolemia, unspecified; Z79.890 Hormone replacement therapy; Z79.899 Other long term (current) drug therapy
CPT/HCPCS: 71045; 74022; 74177; 80053; 82962; 83036; 83605; 83690; 83735; 84443; 84478; 85025; 85027; 93005; 96361; 96374; 96375; 96376; 99285; Q9967